=== PATIENT | female | born 1980 | race Caucasian/White ===

== ENCOUNTER 2019-01-26 12:58 | Emergency (ER) | payer OTHER ==
[~2019-01-26] VITALS: Ht 152.4 cm; Wt 79.0 kg
[~2019-01-26 12:58] MED LIST: TRAM50TA PO
--- NOTE | 2019-01-26 14:27 | PHYS DOC ---
Past History Past Medical History: GERD Past Surgical History: , Tubal ligation Smoking: Quit Greater Than 1 Year Alcohol Use: None Drug Use: None Adult General Chief Complaint Chief Complaint: CHEST PAIN HPI HPI 38-year-old female presents with report of intermittent left-sided chest pain with radiation to left jaw 3 days. Patient reports will occur despite exertion or rest. Denies known trauma. Denies leg swelling or calf tenderness. Denies fever or chills. Patient reports she was previously started on phentermine but hasn't taken over the last 2 days due to palpitations and this chest pain. Low cardiac risk factors. Reports father may have suffered a heart attack. Denies f amily history or medical history of PE/DVT. Review of Systems Review of Systems Constitutional: Denies fever or chills Eyes: Denies redness or eye pain HENT: Denies nasal congestion or sore throat Respiratory: Denies cough or shortness of breath Cardiovascular: Reports chest pain and palpitations GI: Denies abdominal pain, nausea, or vomiting : Denies dysuria or hematuria Musculoskeletal: Denies back pain or joint pain Integument: Denies rash or skin lesions Neurologic: Denies headache, focal weakness or sensory changes Complete systems were reviewed and found to be within normal limits, except as documented in this note. Current Medications Current Medications Current Medications Medications (Trade) Dose Ordered Sig/Rakesh Start Time Stop Time Status Last Admin Dose Admin Sodium Chloride 1,000 ml @ 1,000 mls/hr 1X ONCE 01/26/19 14:30 01/26/19 15:29 Allergies Allergies Allergies Coded Allergies Type Severity Reaction Last Updated Verified aspirin Allergy Unknown 01/26/19 Yes latex Allergy Unknown 01/26/19 Yes Physical Exam Physical Exam Constitutional: Well developed, well nourished, no acute distress, non-toxic appearance HENT: Normocephalic, atraumatic, oropharynx moist Eyes: Conjunctiva normal, no discharge Neck: Normal range of motion, no tenderness, supple Cardiovascular: Heart rate normal, regular rhythm Lungs & Thorax: Bilateral breath sounds clear to auscultation, no wheezing Abdomen: Soft, no tenderness Skin: Warm, dry, no erythema, no rash Extremities: No tenderness, ROM intact, no edema, no calf tenderness Neurologic: Alert and oriented X 3, normal motor function, normal sensory function, no focal deficits noted Psychologic: Affect normal, judgement normal, mood normal Current Patient Data Vital Signs Vital Signs Date Time Temp Pulse Resp B/P (MAP) Pulse Ox O2 Delivery O2 Flow Rate FiO2 01/26/19 13:07 97.7 92 16 97 Room Air EKG EKG @ 1323 NSR at 100bpm, NO ST elevation, QRS 86ms, QT/QTcd 348/452ms Radiology/Procedures Radiology/Procedures PROCEDURE: CHEST PA & LATERAL AP and Lateral Views of the Chest 01/26/2019 3:53 PM Indication: Chest pain Comparison: None Findings: There is no focal consolidation or infiltrate identified. The cardiomediastinal silhouette is within normal limits. There is no evidence of pneumothorax or pleural effusion. No acute osseous abnormalities are identified. Impression: No evidence of acute cardiopulmonary process. Electronically signed by: Lavell Dean MD (01/26/2019 4:31 PM) [facility] Course & Med Decision Making Course & Med Decision Making Pertinent Labs and Imaging studies reviewed. (See chart for details) Patient presents with atypical chest pain. Low cardiac risk factors. No history or family history of DVT/PE. No clinical signs of DVT noted. EKG stable. Labs obtained and posted to chart. D-dimer within normal limits. Troponin also within normal limits. HEART score 1. Chest x-ray without acute process. Patient stable for discharge with outpatient follow-up with PCP. Discussed findings and plan with patient and family, who acknowledge understanding and agreement. Dragon Disclaimer Dragon Disclaimer This electronic medical record was generated, in whole or in part, using a voice recognition dictation system. Departure Departure: Impression: Primary Impression: Atypical chest pain Disposition: HOME, SELF-CARE Condition: STABLE Referrals: RUKHSANA UMANA DO (PCP) Patient Instructions: Chest Pain (Nonspecific), [id number] HEART Score for Chest Pain PTs The HEART Score for CP Pts HEART Score for Chest Pain: HEART Score for Chest Pain Response (Comments) Value History Slighlty/Non-Suspicious 0 ECG Normal 0 Age < 45 0 Risk Factors 1 or 2 Risk Factors 1 Troponin < Normal Limit 0 Total 1 Risk Factors: Risk Factors: DM, Current or recent (<one month) smoker, HTN, HLP, family history of CAD, obesity. Risk Scores: Score 0 - 3: 2.5% MACE over next 6 weeks - Discharge Home Score 4 - 6: 20.3% MACE over next 6 weeks - Admit for Clinical Observation Score 7 - 10: 72.7% MACE over next 6 weeks - Early Invasive Strategies CHRISTIANO BARAJAS DO Jan 26, 2019 14:27
[2019-01-26] MEDS ORDERED: IV NORMAL SALINE 1,000ML 1,000 ML IV ONE (14:30)
[2019-01-26 14:53] LABS: BASO % 0 % (0-3); EOS % 1 % (0-3); HEMOGLOBIN 14.4 g/dL (12.0-15.5); LYMPH # 1.4 x10^3/uL (1.0-4.8); LYMPH % 22 % (24-48); MEAN CORPUSCULAR HEMOGLOBIN 30 pg (25-35); MEAN CORPUSCULAR HGB CONC 34 g/dL (31-37); MEAN CORPUSCULAR VOLUME 90 fL (79-100); MONO # 0.4 x10^3/uL (0.0-1.1); MONO % 5 % (0-9); NEUT # 4.9 x10^3uL (1.8-7.7); NEUT % 72 % (31-73); PLATELET COUNT 236 x10^3/uL (140-400); RED BLOOD COUNT 4.78 x10^6/uL (3.50-5.40); RED CELL DISTRIBUTION WIDTH 14.1 % (11.5-14.5); WHITE BLOOD COUNT 6.7 x10^3/uL (4.0-11.0)
[2019-01-26 14:57] LABS: BACTERIA,URINE 0 /HPF (0-FEW); BILIRUBIN,URINE NEG (NEG); CLARITY,URINE CLEAR; COLOR,URINE STRAW; GLUCOSE,URINE NEG (NEG); NITRITE,URINE NEG (NEG); RBC,URINE 0 /HPF (0-2); SQUAMOUS EPITHELIAL CELL,UR FEW /LPF; UROBILINOGEN,URINE 0.2 mg/dL (0.2 mg/dL); WBC,URINE 0 /HPF (0-4)
[2019-01-26 15:43] LABS: ALBUMIN 3.6 g/dL (3.4-5.0); CALCIUM 8.8 mg/dL (8.5-10.1); CREATININE 0.8 mg/dL (0.6-1.0); GFR 81.2; MAGNESIUM 2.1 mg/dL (1.8-2.4); POTASSIUM 3.4 mmol/L (3.5-5.1); TOTAL BILIRUBIN 0.3 mg/dL (0.2-1.0); TOTAL PROTEIN 7.1 g/dL (6.4-8.2)
[2019-01-26 16:34] VITALS: BP 125/87
--- NOTE | 2019-01-26 16:34 | RAD ---
AP and Lateral Views of the Chest 01/26/2019 3:53 PM Indication: Chest pain Comparison: None Findings: There is no focal consolidation or infiltrate identified. The cardiomediastinal silhouette is within normal limits. There is no evidence of pneumothorax or pleural effusion. No acute osseous abnormalities are identified. Impression: No evidence of acute cardiopulmonary process. Electronically signed by: Lavell Dean MD (01/26/2019 4:31 PM) [facility]
--- NOTE | 2019-01-27 01:57 | EKG ---
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
== END 2019-01-26 16:39 | disposition home or self-care (01) ==
LOC: ER 12:58
DX: R07.89 Other chest pain (principal); R00.2 Palpitations; K21.9 Gastro-esophageal reflux disease without esophagitis; Z79.899 Other long term (current) drug therapy; Z88.6 Allergy status to analgesic agent; Z91.040 Latex allergy status
CPT/HCPCS: 36415; 71046; 80053; 81001; 81025; 82553; 83690; 83735; 83880; 84484; 85025; 85379; 85610; 85730; 93005; 99285-25; J7030